=== PATIENT | male | born 1975 | race Two or more races ===

== ENCOUNTER 2020-05-28 13:09 | Inpatient (IN) | payer OTHER ==
[2020-05-28] MEDS ORDERED: MENTHOL/PHENOL 1 EACH UD MM PRN (14:40)
[2020-05-28] MEDS ORDERED: NICOTINE POLACRILEX 2 MG GUM BUC PRN (14:40)
[2020-05-28] MEDS ORDERED: MAGNESIUM CITRATE 300 ML BOTTLE PO PRN (14:40)
[2020-05-28] MEDS ORDERED: MAG HYDROX/AL HYDROX/SIMETH 30 ML UNIT-DOSE CUP PO PRN (14:40)
[2020-05-28] MEDS ORDERED: MAGNESIUM HYDROX 2400MG/30ML ORAL SUSPENSION 30 ML CUP PO PRN (14:40)
[2020-05-28] MEDS ORDERED: ONDANSETRON *ODT* 4 MG TABLET SL PRN (14:40)
[2020-05-28] MEDS ORDERED: METHOCARBAMOL 500 MG TABLET PO PRN (14:40)
[2020-05-28] MEDS ORDERED: methaDONE HCL 10 MG TABLET (FOR DETOX USE ONLY) PO ONE (14:40)
[2020-05-28] MEDS ORDERED: ACETAMINOPHEN 325 MG TABLET (FP) PO PRN (14:40)
[2020-05-28] MEDS ORDERED: cloNIDine HCL 0.1 MG TABLET PO PRN (14:40)
[2020-05-28] MEDS ORDERED: NALOXONE HCL 0.4 MG/ML VIAL IM PRN (14:40)
[2020-05-28] MEDS ORDERED: BISMUTH SUBSALICYLATE 262 MG/15 ML BTL PO PRN (14:40)
[2020-05-28] MEDS ORDERED: IBUPROFEN 400 MG TABLET (FP) PO PRN (14:40)
[2020-05-28] MEDS ORDERED: COLLOIDAL OATMEAL 1 BAR EACH TP PRN (14:55)
[2020-05-28 15:22] VITALS: BMI 24.0
[2020-05-28] MEDS: PRENATAL VITAMINS W/ FOLIC ACID TABLET (FP) PO SCH (17:03)
[2020-05-28] MEDS: NICOTINE 7 MG/24 HOURS TOPICAL PATCH TD SCH (17:04)
[2020-05-28] MEDS: hydrOXYzine PAMOATE 25 MG CAPSULE (FP) PO SCH ×2 (17:05→21:58)
[2020-05-28] MEDS: MINERAL OIL/PETROLAT/WATER TOPICAL CREAM 113 GM JAR TP SCH (21:58)
[2020-05-28] MEDS ORDERED: MELATONIN 5 MG TABLETS PO SCH (22:00)
[2020-05-28] MEDS ORDERED: THIAMINE HCL 100 MG TABLET (FP) PO SCH (22:00)
[2020-05-29] MEDS: hydrOXYzine PAMOATE 25 MG CAPSULE (FP) PO SCH ×2 (06:21→10:44)
[2020-05-29] MEDS ORDERED: methaDONE HCL 10 MG TABLET (FOR DETOX USE ONLY) ONE (09:09)
[2020-05-29] MEDS: NICOTINE 7 MG/24 HOURS TOPICAL PATCH TD SCH (10:41)
[2020-05-29] MEDS: MINERAL OIL/PETROLAT/WATER TOPICAL CREAM 113 GM JAR TP SCH (10:41)
[2020-05-29] MEDS: PRENATAL VITAMINS W/ FOLIC ACID TABLET (FP) PO SCH (10:44)
[2020-05-29 11:18] LABS: HEMATOCRIT 39.9 % (35.4-49); HEMOGLOBIN 13.2 GM/dL (11.7-16.9); MCH 28.8 pg (25.7-33.7); MCHC 33.1 g/dl (32.0-35.9); MEAN CELL VOLUME 86.8 fl (80-96); MEAN PLT VOLUME 10.7 fl (7.5-11.1); PLATELET COUNT 166 K/MM3 (134-434); RBC 4.59 M/mm3 (4.00-5.60); RDW 13.8 % (11.9-15.9); WHITE BLOOD COUNT 7.6 K/mm3 (4.0-10.0)
[2020-05-29 11:23] LABS: ALBUMIN 3.8 g/dl (3.4-5.0)
[2020-05-29 11:24] LABS: CALCIUM 9.1 mg/dL (8.5-10.1)
[2020-05-29 11:25] LABS: BLOOD UREA NITROGEN 15.6 mg/dL (7-18)
[2020-05-29] MEDS ORDERED: hydrOXYzine PAMOATE 25 MG CAPSULE (FP) PO PRN (11:25)
[2020-05-29 11:27] LABS: CREATININE 0.8 mg/dL (0.55-1.3)
[2020-05-29 11:29] LABS: BILIRUBIN,TOTAL 0.6 mg/dL (0.2-1); TOT PROT 7.3 g/dl (6.4-8.2)
[2020-05-29 17:14] VITALS: PULSE 57
[2020-05-29 21:14] VITALS: BP 96/50; TEMP 96.8
[2020-05-30] MEDS ORDERED: methaDONE HCL 10 MG TABLET (FOR DETOX USE ONLY) PO ONE (10:00)
[2020-06-01] MEDS ORDERED: methaDONE HCL 10 MG TABLET (FOR DETOX USE ONLY) PO ONE (10:00)
== END 2020-05-29 20:52 | disposition left against medical advice (07) | DRG 770 ==
LOC: YASAS 13:09 → Y3N 15:16
PROVIDERS: ADMIT Allergy & Immunology; ATTEND Allergy & Immunology
PROC: HZ2ZZZZ Detoxification Services for Substance Abuse Treatment (ICD-10-PCS; principal; 2020-05-28)
DX: F11.23 Opioid dependence with withdrawal (principal); F12.20 Cannabis dependence, uncomplicated; F17.210 Nicotine dependence, cigarettes, uncomplicated; F32.9 Major depressive disorder, single episode, unspecified; F43.10 Post-traumatic stress disorder, unspecified; L85.3 Xerosis cutis; Z91.5 Personal history of self-harm; Z87.81 Personal history of (healed) traumatic fracture; Z56.0 Unemployment, unspecified; Z59.0 Homelessness
CPT/HCPCS: 36415; 80053; 85027; 86593; 86780; 93005; 93010; C9803; U0003